=== PATIENT | female | born 1990 | race Caucasian/White ===

== ENCOUNTER → 2016-11-11 | Outpatient (CLI) | payer MEDICAID ==
[~2016-11-11] MED LIST: AUGMENTIN 875 M1 TAB PO; CIPRO 500MG TA500 MG PO; FLEXERIL10 MG PO; HYDROXYYZINE PA25 MG PO; IBUPROFEN600 MG PO; KEFLEX 500MG.500 MG PO; LABETALOL200 MG PO; LORTAB 5/500 501 TAB PO; MEDROL 4MG. DOSE4 MG PO; MEDROXYPROG150 MG/M1 IM; NAPROXEN SODIU500 MG PO; NIFEDIPINE ER30 MG PO; PREDNISONE 20MG20 MG PO; PRENATAL PLUS1 TA1 PO
[2016-11-11 18:06] LABS: HEMOGLOBIN 13.5 g/dL (12.2-16.2); LYMPH # 3.4 K/mm3 (0.7-4.5); LYMPH % 32.1 % (10-50.0)
== END ==
LOC: LAB 17:39
PROVIDERS: Nurse Practitioner Family
DX: E04.9 Nontoxic goiter, unspecified (principal)

== ENCOUNTER 2017-07-04 11:58 | Day surgery (SDC) | payer MEDICAID ==
[~2017-07-04] VITALS: Ht 170.2 cm; Wt 68.0 kg
[~2017-07-04 11:58] MED LIST changes: +BACTRIM DS 8001 TA1 PO; +PYRIDIUM100 M2 PO
--- NOTE | 2017-07-04 13:43 | Operative Note ---
Surgeon/Diagnoses Surgeon/Dog License Officer Supervisor(s) Date of procedure: 07/04/17 Surgeon: MD Khushboo Olivia Dog License Officer Supervisor(s): Manuel Dawson Diagnoses Pre-op diagnosis: Biliary dyskinesia Post-op diagnosis Biliary dyskinesia Chronic cholecystitis Procedure Procedure Procedure: Laparoscopic cholecystectomy Indications: TING VILLALOBOS is a 27 year-old Female with a history of upper abdominal pain , nausea, and radiographic evidence of biliary dyskinesia. Findings: Mild pericholecystic fat stranding and mild to moderate thickening of the tissue in and around the infundibulum Procedure Description: After informed consent was obtained, the patient was taken to the operating room and placed in the supine position. General anesthesia was induced and the patient's abdomen was prepped and draped in a sterile fashion. After infiltration with local anesthetic an infraumbilical incision was made. A Veress needle was placed in position. The abdomen was insufflated. A 5 mm optical trocar was placed in position. Under direct visualization, 2 additional 5 mm trocars were placed in the RIGHT upper quadrant. A 12 mm trocar was placed in the subxiphoid position. The gallbladder was elevated up and over the liver margin. The tissue around the cystic duct was carefully dissected. Clips were placed proximally and the duct was transected at the infundibulum utilizing harmonic maricarmen. Harmonic maricarmen were then utilized to remove the gallbladder from the liver margin. The gallbladder was placed in a retrieval bag and removed through the subxiphoid trocar site. The RIGHT upper quadrant was thoroughly irrigated. No active bleeding or bile leak was noted. The fascia at the subxiphoid trocar site was reapproximated utilizing the allison-close device. Pneumoperitoneum was released as the remaining trocars were removed. All wounds were irrigated and skin was closed with 4-0 Monocryl in a subcuticular fashion. Steri-Strips were applied and the patient's anesthetic agents were reversed. After extubation, the patient was transferred to recovery in stable condition. EBL (ml): 15 Anesthesia: GETA Complications: No immediate Specimens: Gallbladder and contents Disposition Disposition: Stable to recovery from where she will be discharged home. She will follow-up in 1-2 weeks. at 1347
--- NOTE | 2017-07-04 14:05 | Anesthesia Record ---
Anesthesia Record Part II Discharge time: 1425 Destination: Same day surgery PACU nurse assessment review? Yes Patient is: Awake, Stable Anesthesia complications? No at 1401
--- NOTE | 2017-07-04 14:05 | Anesthesia Record ---
Anesthesia Record Part I Total IV fluids: 1200 EBL (ml): 10 Urine Output: 0 B/P: 122/61 % SaO2: 97 Pulse: 81 Resps: 8 Temp: 97.1 Patient is: Awake, Stable Stable to PACU at: 1355 at 1404
--- NOTE | 2017-07-04 14:05 | Anesthesia Record ---
Anesthesia Record Part II Discharge time: 1425 Destination: Same day surgery PACU nurse assessment review? Yes Patient is: Awake, Stable Anesthesia complications? No at 1404
[2017-07-04 15:54] VITALS: BP 109/69
== END 2017-07-04 15:10 | disposition home or self-care (01) ==
LOC: SDC 11:58
PROVIDERS: Surgery
PROC: 0FT44ZZ Resection of Gallbladder, Percutaneous Endoscopic Approach (ICD-10-PCS; principal; 2017-07-04 13:45)
DX: K82.8 Other specified diseases of gallbladder (principal)